=== PATIENT | male | born 1955 | race Caucasian/White ===

== ENCOUNTER 2020-02-12 17:13 | Emergency (ER) | payer MEDICARE ==
[~2020-02-12] VITALS: Ht 177.8 cm; Wt 81.8 kg
[~2020-02-12 17:13] MED LIST: HYDR-4353 PO
[2020-02-12 17:19] VITALS: BP 120/68
== END 2020-02-12 18:31 | disposition left against medical advice (07) ==
LOC: ER 17:18
DX: M25.519 Pain in unspecified shoulder (principal); Z53.21 Procedure and treatment not carried out due to patient leaving prior to being seen by health care provider
CPT/HCPCS: 73030

== ENCOUNTER 2020-02-16 18:46 | Inpatient (IN) | payer MEDICARE ==
[~2020-02-16] VITALS: Ht 177.8 cm; Wt 85.6 kg
[2020-02-16 19:21] LABS: BASOPHILS # (AUTO) 0.1 X10'3 (0-0.2); BASOPHILS % (AUTO) 1.4 % (0-1); EOSINOPHILS # (AUTO) 0.3 X10'3 (0-0.9); EOSINOPHILS % (AUTO) 2.8 % (0-6); HEMOGLOBIN 9.7 g/dl (14.0-17.9); LYMPHOCYTES # (AUTO) 4.1 X10'3 (1.1-4.8); LYMPHOCYTES % (AUTO) 41.2 % (21-51); MEAN CORPUSCULAR HEMOGLOBIN 32.1 PG (27.0-31.0); MEAN CORPUSCULAR HGB CONC 33.6 g/dL (33.0-36.5); MEAN CORPUSCULAR VOLUME 95.5 FL (78-98); MEAN PLATELET VOLUME 8.4 FL (7.4-10.4); MONOCYTES # (AUTO) 1.7 X10'3 (0-0.9); MONOCYTES % (AUTO) 16.9 % (2-12); NEUTROPHILS # (AUTO) 3.8 X10'3 (1.8-7.7); NEUTROPHILS % (AUTO) 37.7 % (42-75); PLATELET COUNT 234 X10'3 (140-440); RED BLOOD COUNT 3.03 X10'6 (4.70-6.10); RED CELL DISTRIBUTION WIDTH 17.3 % (11.5-14.5)
[2020-02-16 19:43] LABS: ALANINE AMINOTRANSFERASE 40 U/L (12-78); ALBUMIN 3.2 G/DL (3.4-5.0); ALBUMIN/GLOBULIN RATIO 0.8 (1.1-1.5); ALKALINE PHOSPHATASE 84 IU/L (46-116); ANION GAP 11 (8-16); ANISOCYTOSIS 2+; ASPARTATE AMINO TRANSFERASE 63 U/L (10-37); BILIRUBIN,TOTAL 0.9 MG/DL (0.1-1.0); BLOOD UREA NITROGEN 77 MG/DL (7-18); BUN/CREATININE RATIO 29.5 (5.4-32.0); CALCIUM 7.9 MG/DL (8.5-10.1); CHLORIDE 105 MMOL/L (99-107); CREATININE 2.61 MG/DL (0.60-1.10); GLUCOSE 109 MG/DL (70-104); PLATELET ESTIMATE NORMAL; POTASSIUM 5.8 MMOL/L (3.5-5.1); SODIUM 137 MMOL/L (135-145); TOTAL CARBON DIOXIDE 21.5 MMOL/L (24-32); TOTAL CELLS COUNTED 100; TOTAL PROTEIN 7.4 G/DL (6.4-8.2); eGFR 25 ML/MIN
[2020-02-16 20:06] LABS: PARTIAL THROMBOPLASTIN TIME 126 SECONDS (22-32)
--- NOTE | 2020-02-16 20:38 | NUR ---
ANG # (PTS DAUGHTER) [phone]
--- NOTE | 2020-02-16 20:44 | NUR ---
Attempted IV access x 2 left forearm without success. Pressure dressing applied due to the INR being elevated.
[2020-02-16] MEDS ORDERED: tranexamic acid 1gm/0.7% sal. 100 ML IV ONE ×2 (20:45→20:55)
[2020-02-16] MEDS ORDERED: phytonadione inj. 10 MG in normal saline 100ml IV soln 99 ML IV ONE (20:50)
[2020-02-16] MEDS ORDERED: pantoprazole 40 MG vial IV STA (21:06)
[2020-02-16] MEDS ORDERED: acetaminophen 325mg tablet PO PRN (21:10)
[2020-02-16] MEDS ORDERED: magnesium 4gm in 100ml NS 100 ML IV PRN (21:10)
[2020-02-16] MEDS ORDERED: magnesium hydroxide 30ml (MOM) UD suspension PO PRN (21:10)
[2020-02-16] MEDS ORDERED: thiamine 100mg/ml 2ml inj. IV ONE (21:10)
[2020-02-16] MEDS ORDERED: mag hydrox/Alum hydrox/simeth 30ml oral suspension PO PRN (21:10)
[2020-02-16] MEDS ORDERED: ondansetron/PF 4mg/2ml inj IV PRN (21:10)
[2020-02-16] MEDS ORDERED: haloperidol 5mg tablet PO PRN ×2 (21:10→21:30)
[2020-02-16] MEDS ORDERED: magnesium 2GM in 50ml NS 50 ML IV PRN (21:10)
[2020-02-16] MEDS ORDERED: potassium CL 10mEq/100ml bag 100 ML IV PRN ×2 (21:10)
[2020-02-16] MEDS ORDERED: LORazepam 2 mg/ml vial IV PRN (21:10)
[2020-02-16] MEDS ORDERED: magnesium Cl slow-release 64mg tablet PO PRN (21:10)
[2020-02-16] MEDS ORDERED: dextrose 50%-water 50ml dispensing syringe IV PRN (21:10)
[2020-02-16] MEDS ORDERED: haloperidol lactate 5mg/ml inj IM PRN ×2 (21:10→21:30)
[2020-02-16] MEDS ORDERED: potassium Cl 20 mEq SR tablet PO PRN ×2 (21:10)
[2020-02-16] MEDS ORDERED: ketamine 50 mg/ml 10ml vial IV ONE (21:15)
[2020-02-16] MEDS ORDERED: LIDOcaine Viscous 15ml cup MM ONE (21:15)
[2020-02-16] MEDS ORDERED: ondansetron/PF 4mg/2ml inj IV ONE (21:15)
[2020-02-16] MEDS: normal saline 1000ml 1,000 ML IV SCH (21:16)
[2020-02-16] MEDS ORDERED: SIMV-42 PO (21:19)
[2020-02-16] MEDS ORDERED: WARF2.5T82 PO (21:19)
[2020-02-16] MEDS ORDERED: CARV-50 PO (21:19)
[2020-02-16] MEDS ORDERED: SPIR25TA5 PO (21:19)
[2020-02-16 21:21] LABS: AMYLASE 65 U/L (25-115); LIPASE 295 U/L (73-393); MAGNESIUM 2.2 MG/DL (1.5-2.4)
[2020-02-16] MEDS ORDERED: AMIO200T61 PO (21:23)
--- NOTE | 2020-02-16 21:53 | NUR ---
assisting RN with pt care, pt is resting quietly on gurney, resp even and unlabored, no epistaxsis at this time,
[2020-02-17] VITALS: BP 115/57
--- NOTE | 2020-02-17 | NUR ---
PATIENT ADMITTED TO ROOM 340B FROM ER FOR ANEMIA AND SUPRATHERAPEUTIC INR. PLACED COMFORTABLE IN BED VITAL SIGNS TAKEN AND RECORDED.
[2020-02-17] MEDS: pantoprazole 40MG/NS 100ML BAG 100 ML IV SCH ×5 (00:40→21:43)
[2020-02-17] MEDS: HYDROcodone/acetaminophen 5mg/325mg tablet PO PRN ×2 (01:46→08:29)
[2020-02-17] MEDS: LORazepam 2 mg/ml vial IV PRN ×2 (04:09→08:34)
[2020-02-17 05:30] LABS: BASOPHILS # (AUTO) 0.1 X10'3 (0-0.2); BASOPHILS % (AUTO) 1.2 % (0-1); EOSINOPHILS # (AUTO) 0.2 X10'3 (0-0.9); EOSINOPHILS % (AUTO) 2.7 % (0-6); HEMATOCRIT 24.1 % (42.0-52.0); HEMOGLOBIN 8.2 g/dl (14.0-17.9); LYMPHOCYTES # (AUTO) 1.8 X10'3 (1.1-4.8); LYMPHOCYTES % (AUTO) 28.4 % (21-51); MEAN CORPUSCULAR HEMOGLOBIN 32.4 PG (27.0-31.0); MEAN CORPUSCULAR HGB CONC 33.9 g/dL (33.0-36.5); MEAN CORPUSCULAR VOLUME 95.4 FL (78-98); MEAN PLATELET VOLUME 8.8 FL (7.4-10.4); MONOCYTES # (AUTO) 1.1 X10'3 (0-0.9); NEUTROPHILS # (AUTO) 3.2 X10'3 (1.8-7.7); NEUTROPHILS % (AUTO) 50.7 % (42-75); PLATELET COUNT 157 X10'3 (140-440); RED BLOOD COUNT 2.52 X10'6 (4.70-6.10); RED CELL DISTRIBUTION WIDTH 17.7 % (11.5-14.5); WHITE BLOOD COUNT 6.2 X10'3 (4.5-11.0)
[2020-02-17 05:46] LABS: ALANINE AMINOTRANSFERASE 31 U/L (12-78); ALBUMIN 2.8 G/DL (3.4-5.0); ALBUMIN/GLOBULIN RATIO 0.8 (1.1-1.5); ALKALINE PHOSPHATASE 68 IU/L (46-116); ANION GAP 10 (8-16); ASPARTATE AMINO TRANSFERASE 45 U/L (10-37); BILIRUBIN,TOTAL 0.9 MG/DL (0.1-1.0); BLOOD UREA NITROGEN 70 MG/DL (7-18); BUN/CREATININE RATIO 38.7 (5.4-32.0); CALCIUM 7.5 MG/DL (8.5-10.1); CHLORIDE 107 MMOL/L (99-107); CREATININE 1.81 MG/DL (0.60-1.10); GLUCOSE 103 MG/DL (70-104); MAGNESIUM 1.9 MG/DL (1.5-2.4); PHOSPHORUS 2.6 MG/DL (2.3-4.5); POTASSIUM 5.4 MMOL/L (3.5-5.1); SODIUM 138 MMOL/L (135-145); TOTAL CARBON DIOXIDE 20.7 MMOL/L (24-32); TOTAL PROTEIN 6.3 G/DL (6.4-8.2); eGFR 38 ML/MIN
--- NOTE | 2020-02-17 06:30 | NUR ---
Problems reprioritized. Patient report given, questions answered & plan of care reviewed with THU MELISSA.
--- NOTE | 2020-02-17 06:56 | NUR ---
Patient in room [facility]. I have received report from Azeb MELISSA and had the opportunity to ask questions and assume patient care.
[2020-02-17 08:00] VITALS: BP 124/50
[2020-02-17] MEDS: K and/or MAG REPLACEMENT MC SCH ×2 (08:00→20:00)
[2020-02-17] MEDS: thiamine 100mg tablet PO SCH (08:29)
[2020-02-17] MEDS: multivitamins, therapeutics tablet PO SCH (08:30)
[2020-02-17] MEDS: folic acid 1mg tablet PO SCH (08:30)
[2020-02-17] MEDS: spironolactone 25 MG tablet PO SCH (08:30)
[2020-02-17] MEDS: carVEDilol 12.5mg tablet PO SCH (08:31)
[2020-02-17] MEDS: atorvastatin 10mg tablet PO SCH (08:31)
[2020-02-17] MEDS: amiodarone 200mg tablet PO SCH (08:31)
[2020-02-17] MEDS: normal saline 1000ml 1,000 ML IV SCH ×2 (09:04→18:00)
[2020-02-17 09:13] LABS: ANISOCYTOSIS 1+; PLATELET ESTIMATE NORMAL
[2020-02-17 09:24] VITALS: BP 104/51
--- NOTE | 2020-02-17 10:25 | NUR ---
Patient reported that he had a bowel movement this morning 02/17/20, patient states that the stool was formed and dark in color. Emanuel HERRING
--- NOTE | 2020-02-17 10:27 | NUR ---
Cleaned wound on right elbow and replaced bandage. Wound is small, circular in shape and is no longer bleeding. Emanuel HERRING
[2020-02-17 15:37] VITALS: BP 117/46
--- NOTE | 2020-02-17 17:19 | NUR ---
Student documentation: I have reviewed all interventions, assessments performed and documented by Daisy HERRING from [facility] . Student Medication Administration: For all medication-passes, medications were reviewed, dispensed, administered and documented per hospital policy by Daisy HERRING form [facility].
--- NOTE | 2020-02-17 17:59 | NUR ---
patient is stable, npo after midnight for EGD in am
[2020-02-17 18:00] VITALS: BP 104/57
--- NOTE | 2020-02-17 18:32 | NUR ---
Problems reprioritized. Patient report given, questions answered & plan of care reviewed with Moreno MELISSA.
[2020-02-17] MEDS ORDERED: phytonadione inj. 10 MG in normal saline 100ml IV soln 99 ML IV ONE (21:15)
[2020-02-18] VITALS (13 sets, daily range): BP systolic 101–130; BP diastolic 45–73
[2020-02-18] MEDS: pantoprazole 40MG/NS 100ML BAG 100 ML IV SCH ×3 (03:33→15:23)
[2020-02-18] MEDS: normal saline 1000ml 1,000 ML IV SCH ×3 (03:35→23:07)
[2020-02-18 05:41] LABS: EOSINOPHILS # (AUTO) 0.2 X10'3 (0-0.9); HEMATOCRIT 22.9 % (42.0-52.0); HEMOGLOBIN 7.8 g/dl (14.0-17.9); LYMPHOCYTES # (AUTO) 1.9 X10'3 (1.1-4.8); MONOCYTES # (AUTO) 0.9 X10'3 (0-0.9); RED BLOOD COUNT 2.34 X10'6 (4.70-6.10)
[2020-02-18 05:43] LABS: BASOPHILS # (AUTO) 0.1 X10'3 (0-0.2); BASOPHILS % (AUTO) 0.9 % (0-1); EOSINOPHILS % (AUTO) 4.2 % (0-6); LYMPHOCYTES % (AUTO) 33.8 % (21-51); MEAN CORPUSCULAR HEMOGLOBIN 33.3 PG (27.0-31.0); MEAN CORPUSCULAR HGB CONC 34.1 g/dL (33.0-36.5); MEAN CORPUSCULAR VOLUME 97.6 FL (78-98); MEAN PLATELET VOLUME 8.4 FL (7.4-10.4); MONOCYTES % (AUTO) 15.6 % (2-12); NEUTROPHILS # (AUTO) 2.6 X10'3 (1.8-7.7); NEUTROPHILS % (AUTO) 45.5 % (42-75); PLATELET COUNT 152 X10'3 (140-440); RED CELL DISTRIBUTION WIDTH 17.9 % (11.5-14.5); WHITE BLOOD COUNT 5.6 X10'3 (4.5-11.0)
[2020-02-18 06:02] LABS: ALANINE AMINOTRANSFERASE 24 U/L (12-78); ALBUMIN 2.6 G/DL (3.4-5.0); ALBUMIN/GLOBULIN RATIO 0.7 (1.1-1.5); ALKALINE PHOSPHATASE 63 IU/L (46-116); ANION GAP 2 (8-16); ASPARTATE AMINO TRANSFERASE 37 U/L (10-37); BLOOD UREA NITROGEN 41 MG/DL (7-18); BUN/CREATININE RATIO 32.8 (5.4-32.0); CALCIUM 7.8 MG/DL (8.5-10.1); CHLORIDE 111 MMOL/L (99-107); CREATININE 1.25 MG/DL (0.60-1.10); GLUCOSE 92 MG/DL (70-104); MAGNESIUM 1.8 MG/DL (1.5-2.4); PHOSPHORUS 2.1 MG/DL (2.3-4.5); SODIUM 140 MMOL/L (135-145); TOTAL CARBON DIOXIDE 26.6 MMOL/L (24-32); TOTAL PROTEIN 6.2 G/DL (6.4-8.2); eGFR 59 ML/MIN
[2020-02-18 06:04] LABS: POTASSIUM 6.1 MMOL/L (3.5-5.1)
--- NOTE | 2020-02-18 06:42 | NUR ---
Patient in room [facility]. I have received report from berkley Mayer and had the opportunity to ask questions and assume patient care.
--- NOTE | 2020-02-18 06:45 | NUR ---
paged with critical value K=6.1 ,awaiting orders
[2020-02-18] MEDS: spironolactone 25 MG tablet PO SCH (08:00)
[2020-02-18] MEDS: K and/or MAG REPLACEMENT MC SCH ×2 (08:43→20:00)
[2020-02-18] MEDS: amiodarone 200mg tablet PO SCH (08:44)
[2020-02-18] MEDS: atorvastatin 10mg tablet PO SCH (08:45)
[2020-02-18] MEDS: folic acid 1mg tablet PO SCH (08:45)
[2020-02-18] MEDS: carVEDilol 12.5mg tablet PO SCH (08:45)
[2020-02-18] MEDS: multivitamins, therapeutics tablet PO SCH (08:46)
[2020-02-18] MEDS: thiamine 100mg tablet PO SCH (08:46)
[2020-02-18] MEDS ORDERED: sodium polystyrene sulfonate 15gm/60ml oral suspension PO ONE (09:40)
[2020-02-18] MEDS ORDERED: calcium gluconate inj. 1 GM in normal saline 100ml IV soln 90 ML IV ONE (09:40)
[2020-02-18] MEDS ORDERED: CALCIUM GLUC 1gm/50ml NACL,iso 100 ML IV ONE (09:57)
[2020-02-18 16:25] LABS: HEMATOCRIT 22.6 % (42.0-52.0); HEMOGLOBIN 7.7 g/dl (14.0-17.9); MEAN PLATELET VOLUME 7.7 FL (7.4-10.4); PLATELET COUNT 160 X10'3 (140-440); RED BLOOD COUNT 2.33 X10'6 (4.70-6.10); RED CELL DISTRIBUTION WIDTH 18.2 % (11.5-14.5); WHITE BLOOD COUNT 5.5 X10'3 (4.5-11.0)
[2020-02-18] MEDS ORDERED: fentaNYL/PF 50MCG/1 ML 2ML syringe ONE (18:21)
[2020-02-18] MEDS ORDERED: MIDAZolam 5mg/5ml vial ONE (18:22)
[2020-02-18] MEDS ORDERED: LIDOcaine Viscous 15ml cup ONE (18:22)
[2020-02-18] MEDS ORDERED: LORazepam 1 MG tablet PO PRN ×2 (21:10→21:30)
[2020-02-18] MEDS ORDERED: LORazepam 2 mg/ml vial IV PRN ×2 (21:10→21:30)
[2020-02-19] VITALS: BP 110/62
[2020-02-19 05:36] LABS: EOSINOPHILS # (AUTO) 0.2 X10'3 (0-0.9); HEMOGLOBIN 7.2 g/dl (14.0-17.9); LYMPHOCYTES # (AUTO) 1.7 X10'3 (1.1-4.8); LYMPHOCYTES % (AUTO) 37.8 % (21-51); MEAN CORPUSCULAR HEMOGLOBIN 32.6 PG (27.0-31.0); MEAN CORPUSCULAR HGB CONC 33.3 g/dL (33.0-36.5); MEAN CORPUSCULAR VOLUME 97.9 FL (78-98); MEAN PLATELET VOLUME 7.9 FL (7.4-10.4); MONOCYTES # (AUTO) 0.8 X10'3 (0-0.9); MONOCYTES % (AUTO) 17.4 % (2-12); NEUTROPHILS # (AUTO) 1.8 X10'3 (1.8-7.7); NEUTROPHILS % (AUTO) 39.8 % (42-75); PLATELET COUNT 151 X10'3 (140-440); RED BLOOD COUNT 2.21 X10'6 (4.70-6.10); RED CELL DISTRIBUTION WIDTH 18.2 % (11.5-14.5); WHITE BLOOD COUNT 4.5 X10'3 (4.5-11.0)
[2020-02-19 05:48] LABS: HEMATOCRIT 21.7 % (42.0-52.0)
[2020-02-19 05:58] LABS: ALANINE AMINOTRANSFERASE 32 U/L (12-78); ALBUMIN 2.4 G/DL (3.4-5.0); ALBUMIN/GLOBULIN RATIO 0.7 (1.1-1.5); ALKALINE PHOSPHATASE 60 IU/L (46-116); ANION GAP 6 (8-16); ASPARTATE AMINO TRANSFERASE 47 U/L (10-37); BILIRUBIN,TOTAL 0.9 MG/DL (0.1-1.0); BLOOD UREA NITROGEN 18 MG/DL (7-18); CALCIUM 7.4 MG/DL (8.5-10.1); CHLORIDE 112 MMOL/L (99-107); GLUCOSE 94 MG/DL (70-104); MAGNESIUM 1.6 MG/DL (1.5-2.4); PHOSPHORUS 2.8 MG/DL (2.3-4.5); POTASSIUM 4.6 MMOL/L (3.5-5.1); SODIUM 143 MMOL/L (135-145); TOTAL PROTEIN 5.8 G/DL (6.4-8.2); eGFR 76 ML/MIN
--- NOTE | 2020-02-19 06:43 | NUR ---
Received report from Moreno MELISSA
[2020-02-19 06:47] LABS: ANISOCYTOSIS 2+; PLATELET ESTIMATE NORMAL; TOTAL CELLS COUNTED 100
[2020-02-19] MEDS: K and/or MAG REPLACEMENT MC SCH (06:47)
[2020-02-19 06:48] LABS: HYPOCHROMASIA 1+
[2020-02-19 07:00] VITALS: BP 102/59
[2020-02-19] MEDS ORDERED: pantoprazole 40mg Tablet.DR PO SCH (07:30)
[2020-02-19] MEDS: atorvastatin 10mg tablet PO SCH (07:44)
[2020-02-19] MEDS: thiamine 100mg tablet PO SCH (07:44)
[2020-02-19] MEDS: folic acid 1mg tablet PO SCH (07:44)
[2020-02-19] MEDS: amiodarone 200mg tablet PO SCH (07:44)
[2020-02-19] MEDS: multivitamins, therapeutics tablet PO SCH (07:44)
[2020-02-19] MEDS: carVEDilol 12.5mg tablet PO SCH (07:44)
[2020-02-19] MEDS: normal saline 1000ml 1,000 ML IV SCH (09:07)
[2020-02-19 11:00] VITALS: BP_SYST 101; BP_SYST 114; BP_DIAS 48; BP_DIAS 68
[2020-02-19 12:12] LABS: HEMATOCRIT 23.5 % (42.0-52.0); HEMOGLOBIN 7.8 g/dl (14.0-17.9); MEAN CORPUSCULAR HEMOGLOBIN 32.6 PG (27.0-31.0); MEAN CORPUSCULAR HGB CONC 33.1 g/dL (33.0-36.5); MEAN CORPUSCULAR VOLUME 98.7 FL (78-98); MEAN PLATELET VOLUME 8.5 FL (7.4-10.4); PLATELET COUNT 174 X10'3 (140-440); RED BLOOD COUNT 2.38 X10'6 (4.70-6.10); RED CELL DISTRIBUTION WIDTH 18.5 % (11.5-14.5); WHITE BLOOD COUNT 5.2 X10'3 (4.5-11.0)
[2020-02-19] MEDS ORDERED: PANT40TA4 PO (13:56)
[2020-02-19] MEDS ORDERED: FOLI0.4T2 PO (13:56)
[2020-02-19] MEDS ORDERED: MULT-1179 PO (13:56)
[2020-02-19] MEDS ORDERED: THIA50TA10 PO (13:56)
--- NOTE | 2020-02-19 15:34 | NUR ---
Discontinued upper and lower IV's, patient tolerated well canula intact.
[2020-02-20] MEDS ORDERED: LORazepam 2 mg/ml vial IV PRN ×2 (21:10→21:30)
[2020-02-20] MEDS ORDERED: LORazepam 1 MG tablet PO PRN ×2 (21:10→21:30)
== END 2020-02-19 15:42 | disposition home or self-care (01) | DRG 377 ==
LOC: ER 18:46 → ED HOLD 21:07 → SUR 3N 23:57
PROVIDERS: ADMIT Family Medicine; ATTEND Family Medicine
PROC: 0DB68ZX Excision of Stomach, Via Natural or Artificial Opening Endoscopic, Diagnostic (ICD-10-PCS; principal; 2020-02-18)
DX: K29.71 Gastritis, unspecified, with bleeding (principal); N17.0 Acute kidney failure with tubular necrosis; D68.32 Hemorrhagic disorder due to extrinsic circulating anticoagulants; D62 Acute posthemorrhagic anemia; E87.5 Hyperkalemia; F10.10 Alcohol abuse, uncomplicated; F17.210 Nicotine dependence, cigarettes, uncomplicated; I25.10 Atherosclerotic heart disease of native coronary artery without angina pectoris; K70.9 Alcoholic liver disease, unspecified; I48.91 Unspecified atrial fibrillation; K44.9 Diaphragmatic hernia without obstruction or gangrene; G89.29 Other chronic pain; M54.9 Dorsalgia, unspecified; Z79.01 Long term (current) use of anticoagulants; Z79.899 Other long term (current) drug therapy; Z91.19 Patient's noncompliance with other medical treatment and regimen; Z71.41 Alcohol abuse counseling and surveillance of alcoholic
CPT/HCPCS: 36415; 43239; 80053; 80320; 82150; 82948; 83690; 83735; 84100; 84132; 84484; 85025; 85027; 85610; 85730; 86885; 86900; 86901; 87081; 88305; 88342; 97116; 97161; 99152; 99291; A4620; C9113; G0378; J2060; J2250; J2405; J3010; J3411; J3430; J7030; J7040

== ENCOUNTER 2021-05-14 19:48 | Emergency (ER) | payer MEDICARE, MEDICAID ==
[~2021-05-14] VITALS: Ht 177.8 cm; Wt 88.5 kg
[~2021-05-14 19:48] MED LIST changes: +AMIO200T61 PO; +CARV-50 PO; -HYDR-4353 PO; +MULT-25 PO; +PANT40TA54 PO; +SIMV-42 PO; +THIA50TA10 PO
[2021-05-14 20:11] VITALS: BP 140/85
[2021-05-14 20:46] LABS: BASOPHILS % (AUTO) 0.7 % (0-1); EOSINOPHILS # (AUTO) 0.1 X10'3 (0-0.9); EOSINOPHILS % (AUTO) 1.1 % (0-6); HEMATOCRIT 41.1 % (42.0-52.0); HEMOGLOBIN 13.6 g/dl (14.0-17.9); LYMPHOCYTES # (AUTO) 2.5 X10'3 (1.1-4.8); LYMPHOCYTES % (AUTO) 36.2 % (21-51); MEAN CORPUSCULAR HEMOGLOBIN 36.7 PG (27.0-31.0); MEAN CORPUSCULAR VOLUME 111.3 FL (78-98); MEAN PLATELET VOLUME 8.8 FL (7.4-10.4); MONOCYTES # (AUTO) 0.9 X10'3 (0-0.9); MONOCYTES % (AUTO) 12.8 % (2-12); NEUTROPHILS # (AUTO) 3.4 X10'3 (1.8-7.7); NEUTROPHILS % (AUTO) 49.2 % (42-75); PLATELET COUNT 164 X10'3 (140-440); RED BLOOD COUNT 3.69 X10'6 (4.70-6.10); RED CELL DISTRIBUTION WIDTH 15.9 % (11.5-14.5); WHITE BLOOD COUNT 6.8 X10'3 (4.5-11.0)
[2021-05-14 20:58] LABS: ALANINE AMINOTRANSFERASE 23 U/L (12-78); ALBUMIN 2.7 G/DL (3.4-5.0); ALBUMIN/GLOBULIN RATIO 0.5 (1.1-1.5); ALKALINE PHOSPHATASE 132 IU/L (46-116); ANION GAP 8 (8-16); ASPARTATE AMINO TRANSFERASE 75 U/L (10-37); BILIRUBIN,TOTAL 0.4 MG/DL (0.1-1.0); BLOOD UREA NITROGEN 12 MG/DL (7-18); BUN/CREATININE RATIO 12.6 (5.4-32.0); CALCIUM 8.8 MG/DL (8.5-10.1); CHLORIDE 102 MMOL/L (99-107); CREATININE 0.95 MG/DL (0.60-1.10); GLUCOSE 132 MG/DL (70-104); POTASSIUM 4.6 MMOL/L (3.5-5.1); SODIUM 138 MMOL/L (135-145); TOTAL CARBON DIOXIDE 28.5 MMOL/L (24-32); TOTAL PROTEIN 8.7 G/DL (6.4-8.2); eGFR 80 ML/MIN
[2021-05-14 21:05] LABS: MAGNESIUM 1.9 MG/DL (1.5-2.4); TROPONIN I < 0.04 NG/ML (0.0-0.05)
[2021-05-14 21:06] LABS: ETHANOL 0.316 GM/DL (0.0-0.010)
[2021-05-14 21:19] LABS: PARTIAL THROMBOPLASTIN TIME 30 SECONDS (22-32)
[2021-05-14 22:29] LABS: PLATELET ESTIMATE NORMAL
--- NOTE | 2021-05-14 22:40 | NUR ---
Patient called for in lobby- no response and not found at this time.
--- NOTE | 2021-05-14 23:26 | NUR ---
Patient no longer found in lobby- second call. Appears to have left.
== END 2021-05-14 23:28 | disposition left against medical advice (07) ==
LOC: ER 19:48
DX: R07.89 Other chest pain (principal); Z53.21 Procedure and treatment not carried out due to patient leaving prior to being seen by health care provider
CPT/HCPCS: 36415; 71045; 80053; 80320; 83735; 83880; 84484; 85008; 85025; 85610; 85730; 93005

== ENCOUNTER 2021-05-25 07:31 | Inpatient (IN) | payer MEDICARE, MEDICAID ==
[~2021-05-25] VITALS: Ht 177.8 cm; Wt 95.0 kg
[2021-05-25] MEDS ORDERED: aspirin 81mg tab.chew PO ONE (08:20)
[2021-05-25 08:36] LABS: BASOPHILS # (AUTO) 0.1 X10'3 (0-0.2); BASOPHILS % (AUTO) 0.7 % (0-1); EOSINOPHILS # (AUTO) 0.1 X10'3 (0-0.9); EOSINOPHILS % (AUTO) 0.8 % (0-6); HEMOGLOBIN 12.8 g/dl (14.0-17.9); LYMPHOCYTES # (AUTO) 2.2 X10'3 (1.1-4.8); LYMPHOCYTES % (AUTO) 24.7 % (21-51); MEAN CORPUSCULAR HGB CONC 33.8 g/dL (33.0-36.5); MEAN CORPUSCULAR VOLUME 109.5 FL (78-98); MEAN PLATELET VOLUME 9.1 FL (7.4-10.4); MONOCYTES # (AUTO) 1.4 X10'3 (0-0.9); MONOCYTES % (AUTO) 15.9 % (2-12); NEUTROPHILS # (AUTO) 5.1 X10'3 (1.8-7.7); NEUTROPHILS % (AUTO) 57.9 % (42-75); PLATELET COUNT 240 X10'3 (140-440); RED BLOOD COUNT 3.47 X10'6 (4.70-6.10); RED CELL DISTRIBUTION WIDTH 16.4 % (11.5-14.5); WHITE BLOOD COUNT 8.8 X10'3 (4.5-11.0)
[2021-05-25 08:51] LABS: ALANINE AMINOTRANSFERASE 42 U/L (12-78); ALBUMIN 2.7 G/DL (3.4-5.0); ALBUMIN/GLOBULIN RATIO 0.5 (1.1-1.5); ALKALINE PHOSPHATASE 118 IU/L (46-116); ANION GAP 7 (8-16); ASPARTATE AMINO TRANSFERASE 84 U/L (10-37); BILIRUBIN,TOTAL 0.6 MG/DL (0.1-1.0); BLOOD UREA NITROGEN 10 MG/DL (7-18); BUN/CREATININE RATIO 13.7 (5.4-32.0); CHLORIDE 99 MMOL/L (99-107); CREATININE 0.73 MG/DL (0.60-1.10); GLUCOSE 136 MG/DL (70-104); POTASSIUM 4.4 MMOL/L (3.5-5.1); SODIUM 135 MMOL/L (135-145); TOTAL CARBON DIOXIDE 28.9 MMOL/L (24-32); TOTAL PROTEIN 8.5 G/DL (6.4-8.2); eGFR > 90 ML/MIN
[2021-05-25 09:33] LABS: ETHANOL 0.054 GM/DL (0.0-0.010)
[2021-05-25] MEDS ORDERED: furosemide 40mg/4ml inj IV ONE (10:35)
[2021-05-25] MEDS ORDERED: magnesium 2GM in 50ml NS 50 ML IV PRN (11:30)
[2021-05-25] MEDS ORDERED: morphine 2 MG/ML inj. syringe IV PRN (11:30)
[2021-05-25] MEDS ORDERED: acetaminophen 325mg tablet PO PRN (11:30)
[2021-05-25] MEDS ORDERED: potassium Cl 20 mEq SR tablet PO PRN ×2 (11:30)
[2021-05-25] MEDS ORDERED: magnesium Cl slow-release 64mg tablet PO PRN (11:30)
[2021-05-25] MEDS ORDERED: PERFLUTREN PROTEIN-A MICROSPHR (Optison) 0.22 MG/ML 3ML VIAL IV ONE (11:30)
[2021-05-25] MEDS ORDERED: ondansetron/PF 4mg/2ml inj IV PRN (11:30)
[2021-05-25] MEDS ORDERED: potassium Cl 40MEQ/1/2NS 520ml 520 ML IV PRN ×2 (11:30)
[2021-05-25] MEDS ORDERED: magnesium 4gm in 100ml NS 100 ML IV PRN (11:30)
[2021-05-25] MEDS ORDERED: BUDE10.2 INH (11:37)
[2021-05-25] MEDS ORDERED: APIX5TAB3 PO (11:37)
[2021-05-25] MEDS ORDERED: METO-395 PO (11:37)
[2021-05-25] MEDS ORDERED: LOSA25TA41 PO (11:37)
[2021-05-25] MEDS ORDERED: SPIR25TA5 PO (11:40)
[2021-05-25] MEDS ORDERED: FURO40TA4 (11:40)
[2021-05-25] MEDS: amiodarone 200mg tablet PO SCH (12:04)
--- NOTE | 2021-05-25 12:07 | NUR ---
DR. SINGH AT BEDSIDE TO EVALUATE PATIENT.
[2021-05-25] MEDS ORDERED: PERFLUTREN PROTEIN-A MICROSPHR (Optison) 0.22 MG/ML 3ML VIAL IV PRN (12:30)
[2021-05-25] MEDS: carVEDilol 12.5mg tablet PO SCH ×2 (12:37→20:25)
[2021-05-25] MEDS: LORazepam 2 mg/ml vial IV PRN ×2 (13:47→20:25)
--- NOTE | 2021-05-25 13:55 | NUR ---
METAL CEILING BUILDER AT BEDSIDE.
--- NOTE | 2021-05-25 14:10 | NUR ---
PAT UP AT BEDSIDE EATING LUNCH, NO SIGNS OF DISTRESS NOTED.
[2021-05-25] MEDS: chlordiazePOXIDE 5mg capsule PO SCH ×2 (15:33→22:19)
--- NOTE | 2021-05-25 16:14 | NUR ---
avionic technician at bedside.
[2021-05-25] MEDS: K and/or MAG REPLACEMENT MC SCH (18:29)
[2021-05-25] MEDS ORDERED: carVEDilol 12.5mg tablet PO SCH (20:00)
--- NOTE | 2021-05-25 20:00 | NUR ---
Patient in room ED 7. I have received report from Georgette MELISSA and had the opportunity to ask questions and assume patient care.
[2021-05-25] MEDS: docusate sod 100mg capsule PO SCH (20:25)
[2021-05-25 20:30] VITALS: BP 140/82
[2021-05-25 22:00] VITALS: BP 141/83
[2021-05-25] MEDS ORDERED: diltiazem 5mg/ml 5ml inj. IV ONE (22:35)
[2021-05-25] MEDS ORDERED: metoprolol succinate 25mg (24-HOUR) SR. Tablet PO SCH (22:40)
--- NOTE | 2021-05-25 22:57 | NUR ---
Spoke with hospitalist regarding new order for Cardizem. Pt's HR is 110 in sinus tach. She advised to not give the Cardizem. However give the Lasix and Losartan per orders.
[2021-05-25] MEDS: furosemide 40mg/4ml inj IV SCH (23:10)
[2021-05-25] MEDS: losartan 25mg tablet PO SCH (23:10)
[2021-05-25] MEDS: ipratropium/albuterol 3ml nebule NEB SCH (23:28)
[2021-05-26 02:00] VITALS: BP 136/80
[2021-05-26] MEDS: ipratropium/albuterol 3ml nebule NEB SCH ×3 (03:32→11:09)
--- NOTE | 2021-05-26 06:18 | NUR ---
Problems reprioritized. Patient report given, questions answered & plan of care reviewed with Elis MELISSA.
[2021-05-26 06:32] LABS: BASOPHILS % (AUTO) 0.4 % (0-1); EOSINOPHILS # (AUTO) 0.1 X10'3 (0-0.9); EOSINOPHILS % (AUTO) 1.4 % (0-6); HEMATOCRIT 36.1 % (42.0-52.0); HEMOGLOBIN 12.1 g/dl (14.0-17.9); LYMPHOCYTES # (AUTO) 1.7 X10'3 (1.1-4.8); LYMPHOCYTES % (AUTO) 25.4 % (21-51); MEAN CORPUSCULAR HEMOGLOBIN 36.7 PG (27.0-31.0); MEAN CORPUSCULAR HGB CONC 33.4 g/dL (33.0-36.5); MEAN PLATELET VOLUME 9.2 FL (7.4-10.4); MONOCYTES # (AUTO) 1.1 X10'3 (0-0.9); MONOCYTES % (AUTO) 15.8 % (2-12); NEUTROPHILS # (AUTO) 3.8 X10'3 (1.8-7.7); PLATELET COUNT 262 X10'3 (140-440); RED BLOOD COUNT 3.28 X10'6 (4.70-6.10); RED CELL DISTRIBUTION WIDTH 16.2 % (11.5-14.5); WHITE BLOOD COUNT 6.8 X10'3 (4.5-11.0)
[2021-05-26 06:47] LABS: ALBUMIN 2.6 G/DL (3.4-5.0); ANION GAP 8 (8-16); BLOOD UREA NITROGEN 20 MG/DL (7-18); BUN/CREATININE RATIO 21.3 (5.4-32.0); CALCIUM 9.5 MG/DL (8.5-10.1); CHLORIDE 98 MMOL/L (99-107); CHOL/HDL RATIO 4.2 (0.00-4.99); CHOLESTEROL 150 MG/DL (0-200); CREATININE 0.94 MG/DL (0.60-1.10); GLUCOSE 106 MG/DL (70-104); HDL CHOLESTEROL 36 MG/DL (35-60); LDL CHOLESTEROL 96 MG/DL (50-100); MAGNESIUM 2.1 MG/DL (1.5-2.4); POTASSIUM 4.5 MMOL/L (3.5-5.1); SODIUM 137 MMOL/L (135-145); TOTAL CARBON DIOXIDE 31.5 MMOL/L (24-32); TRIGLYCERIDES 79 MG/DL (20-135); eGFR 81 ML/MIN
[2021-05-26 07:05] LABS: ANISOCYTOSIS 1+; PLATELET ESTIMATE NORMAL; POLYCHROMASIA FEW; STOMATOCYTES 1+
[2021-05-26] MEDS: chlordiazePOXIDE 5mg capsule PO SCH (07:51)
[2021-05-26] MEDS: docusate sod 100mg capsule PO SCH (07:51)
[2021-05-26 07:52] VITALS: BP_SYST 117
[2021-05-26] MEDS: carVEDilol 12.5mg tablet PO SCH (07:52)
[2021-05-26] MEDS: losartan 25mg tablet PO SCH (07:52)
[2021-05-26] MEDS: amiodarone 200mg tablet PO SCH (07:52)
[2021-05-26] MEDS: furosemide 40mg/4ml inj IV SCH (07:53)
[2021-05-26] MEDS ORDERED: methylPREDNISolone sod succ/PF 40mg inj. IV SCH (08:00)
[2021-05-26] MEDS ORDERED: apixaban 5mg tablet PO SCH (08:00)
[2021-05-26] MEDS: K and/or MAG REPLACEMENT MC SCH (08:00)
[2021-05-26] MEDS: LORazepam 2 mg/ml vial IV PRN (10:59)
[2021-05-26] MEDS ORDERED: LEVO750T46 PO (11:26)
[2021-05-26] MEDS ORDERED: ALBU8.5H17 INH (11:26)
[2021-05-26] MEDS ORDERED: PRED10TA23 PO (11:26)
[2021-05-26] MEDS ORDERED: ondansetron 4mg rapidly disintigrating tab PO PRN (13:15)
== END 2021-05-26 14:00 | disposition home or self-care (01) | DRG 192 ==
LOC: ER 07:31 → ED HOLD 11:36 → PCU 3S 20:05
PROVIDERS: ADMIT Internal Medicine; ATTEND Internal Medicine
DX: J44.1 Chronic obstructive pulmonary disease with (acute) exacerbation (principal); I48.0 Paroxysmal atrial fibrillation; E78.5 Hyperlipidemia, unspecified; F10.20 Alcohol dependence, uncomplicated; F17.210 Nicotine dependence, cigarettes, uncomplicated; I11.0 Hypertensive heart disease with heart failure; I27.20 Pulmonary hypertension, unspecified; I50.9 Heart failure, unspecified; K21.9 Gastro-esophageal reflux disease without esophagitis; Z20.822 Contact with and (suspected) exposure to COVID-19; G89.29 Other chronic pain; M54.9 Dorsalgia, unspecified; R00.0 Tachycardia, unspecified; Z79.01 Long term (current) use of anticoagulants; Z79.899 Other long term (current) drug therapy; Z71.41 Alcohol abuse counseling and surveillance of alcoholic; Z71.6 Tobacco abuse counseling
CPT/HCPCS: 36415; 71045; 80048; 80053; 80061; 80320; 83735; 83880; 84484; 85008; 85025; 87081; 87635; 93005; 93306; 94640; 94760; 96374; 99285; C9803; G0378; J1940; J2060; J2920

== ENCOUNTER 2021-05-29 05:33 | Emergency (ER) | payer MEDICARE, MEDICAID ==
[~2021-05-29] VITALS: Ht 154.9 cm; Wt 95.0 kg
[~2021-05-29 05:33] MED LIST changes: +ALBU8.5H17 INH; -AMIO200T61 PO; +APIX5TAB3 PO; +BUDE10.2 INH; -CARV-50 PO; +LEVO750T46 PO; +LOSA25TA41 PO; +METO-395 PO; -MULT-25 PO; -PANT40TA54 PO; +PRED10TA23 PO; -SIMV-42 PO; -THIA50TA10 PO
[2021-05-29 06:07] LABS: BASOPHILS # (AUTO) 0.1 X10'3 (0-0.2); BASOPHILS % (AUTO) 0.5 % (0-1); EOSINOPHILS % (AUTO) 0.1 % (0-6); HEMATOCRIT 37.8 % (42.0-52.0); HEMOGLOBIN 12.2 g/dl (14.0-17.9); LYMPHOCYTES # (AUTO) 2.4 X10'3 (1.1-4.8); MEAN CORPUSCULAR HEMOGLOBIN 36.2 PG (27.0-31.0); MEAN CORPUSCULAR HGB CONC 32.3 g/dL (33.0-36.5); MEAN CORPUSCULAR VOLUME 112.1 FL (78-98); MEAN PLATELET VOLUME 9.2 FL (7.4-10.4); MONOCYTES # (AUTO) 1.4 X10'3 (0-0.9); MONOCYTES % (AUTO) 14.4 % (2-12); NEUTROPHILS # (AUTO) 5.7 X10'3 (1.8-7.7); PLATELET COUNT 310 X10'3 (140-440); RED BLOOD COUNT 3.37 X10'6 (4.70-6.10); WHITE BLOOD COUNT 9.6 X10'3 (4.5-11.0)
[2021-05-29 06:17] LABS: ALANINE AMINOTRANSFERASE 48 U/L (12-78); ALBUMIN 2.5 G/DL (3.4-5.0); ALBUMIN/GLOBULIN RATIO 0.5 (1.1-1.5); ALKALINE PHOSPHATASE 92 IU/L (46-116); ANION GAP 4 (8-16); ASPARTATE AMINO TRANSFERASE 81 U/L (10-37); BILIRUBIN,TOTAL 0.4 MG/DL (0.1-1.0); BLOOD UREA NITROGEN 26 MG/DL (7-18); BUN/CREATININE RATIO 24.3 (5.4-32.0); CALCIUM 8.8 MG/DL (8.5-10.1); CHLORIDE 102 MMOL/L (99-107); CREATININE 1.07 MG/DL (0.60-1.10); GLUCOSE 101 MG/DL (70-104); POTASSIUM 4.8 MMOL/L (3.5-5.1); SODIUM 137 MMOL/L (135-145); TOTAL CARBON DIOXIDE 30.9 MMOL/L (24-32); TOTAL PROTEIN 7.4 G/DL (6.4-8.2); eGFR 70 ML/MIN
[2021-05-29] MEDS ORDERED: morphine 4 MG/ML inj SYRINge IV ONE (06:40)
[2021-05-29] MEDS ORDERED: albuterol 1.25 MG/3 ML (1/2 strength) nebule NEB ONE (06:40)
[2021-05-29] MEDS ORDERED: metoprolol succinate 25mg (24-HOUR) SR. Tablet PO SCH (08:00)
[2021-05-29] MEDS ORDERED: albuterol 2.5 MG/3 ML nebule NEB ONE (08:05)
[2021-05-29 08:28] VITALS: BP 141/91
== END 2021-05-29 08:34 | disposition home or self-care (01) ==
LOC: ER 05:34
DX: R07.89 Other chest pain (principal); R06.02 Shortness of breath; M54.2 Cervicalgia; I48.91 Unspecified atrial fibrillation; I50.9 Heart failure, unspecified; G89.29 Other chronic pain; F17.200 Nicotine dependence, unspecified, uncomplicated; Z72.89 Other problems related to lifestyle; Z79.2 Long term (current) use of antibiotics; Z79.899 Other long term (current) drug therapy
CPT/HCPCS: 71045; 80053; 83880; 84484; 85025; 93005; 94640; 96374; 99285; J2270; 94760

== ENCOUNTER 2021-07-02 11:42 | Emergency (ER) | payer MEDICARE, MEDICAID ==
[~2021-07-02] VITALS: Ht 177.8 cm; Wt 90.0 kg
[~2021-07-02 11:42] MED LIST changes: -LEVO750T46 PO; -PRED10TA23 PO
[2021-07-02 12:19] LABS: BASOPHILS # (AUTO) 0.1 X10'3 (0-0.2); EOSINOPHILS % (AUTO) 0.5 % (0-6); LYMPHOCYTES # (AUTO) 2.3 X10'3 (1.1-4.8); LYMPHOCYTES % (AUTO) 27.5 % (21-51); MEAN CORPUSCULAR HEMOGLOBIN 35.9 PG (27.0-31.0); MEAN CORPUSCULAR HGB CONC 33.4 g/dL (33.0-36.5); MEAN CORPUSCULAR VOLUME 107.7 FL (78-98); MEAN PLATELET VOLUME 9.4 FL (7.4-10.4); MONOCYTES # (AUTO) 0.8 X10'3 (0-0.9); MONOCYTES % (AUTO) 9.9 % (2-12); NEUTROPHILS # (AUTO) 5.2 X10'3 (1.8-7.7); NEUTROPHILS % (AUTO) 61.1 % (42-75); PLATELET COUNT 282 X10'3 (140-440); RED CELL DISTRIBUTION WIDTH 15.9 % (11.5-14.5); WHITE BLOOD COUNT 8.5 X10'3 (4.5-11.0)
[2021-07-02] MEDS ORDERED: LORazepam 2 mg/ml vial IV ONE (12:25)
[2021-07-02] MEDS ORDERED: LORazepam 1 MG tablet PO ONE (12:25)
[2021-07-02] MEDS ORDERED: metoprolol tartrate 50mg tablet PO ONE (12:25)
[2021-07-02] MEDS ORDERED: metoprolol tartrate 1mg/ml inj IV ONE ×2 (12:25→13:25)
[2021-07-02] MEDS ORDERED: normal saline 1000ML IV soln IVB ONE (12:25)
[2021-07-02 12:33] LABS: ANION GAP 11 (8-16); BLOOD UREA NITROGEN 25 MG/DL (7-18); BUN/CREATININE RATIO 18.9 (5.4-32.0); CHLORIDE 99 MMOL/L (99-107); CREATININE 1.32 MG/DL (0.60-1.10); GLUCOSE 141 MG/DL (70-104); SODIUM 136 MMOL/L (135-145); TOTAL CARBON DIOXIDE 26.2 MMOL/L (24-32)
[2021-07-02 12:34] LABS: ALANINE AMINOTRANSFERASE 25 U/L (12-78); ALBUMIN 2.4 G/DL (3.4-5.0); ALBUMIN/GLOBULIN RATIO 0.4 (1.1-1.5); ALKALINE PHOSPHATASE 139 IU/L (46-116); ASPARTATE AMINO TRANSFERASE 69 U/L (10-37); BILIRUBIN,TOTAL 0.5 MG/DL (0.1-1.0); CALCIUM 8.8 MG/DL (8.5-10.1); TOTAL PROTEIN 9.2 G/DL (6.4-8.2); eGFR 55 ML/MIN
--- NOTE | 2021-07-02 12:58 | NUR ---
nayely (sister) cell phone [phone]
[2021-07-02] MEDS ORDERED: CHLO25CA10 PO (14:00)
[2021-07-02 14:14] VITALS: BP 102/75
== END 2021-07-02 15:25 | disposition home or self-care (01) ==
LOC: ER 11:43
DX: I48.91 Unspecified atrial fibrillation (principal); F10.239 Alcohol dependence with withdrawal, unspecified; E86.0 Dehydration; I50.9 Heart failure, unspecified; G89.29 Other chronic pain; F17.200 Nicotine dependence, unspecified, uncomplicated; Z72.89 Other problems related to lifestyle; Z79.899 Other long term (current) drug therapy; Y90.9 Presence of alcohol in blood, level not specified
CPT/HCPCS: 36415; 71045; 80053; 83880; 84484; 85025; 93005; 96361; 96374; 96375; 96376; 99285; J2060; J7030; J3490

== ENCOUNTER 2021-07-11 15:52 | Emergency (ER) | payer MEDICARE, MEDICAID ==
[~2021-07-11] VITALS: Ht 177.8 cm; Wt 86.4 kg
[~2021-07-11 15:52] MED LIST changes: +CHLO25CA10 PO
[2021-07-11] MEDS ORDERED: normal saline 1000ML IV soln IVB ONE (16:15)
[2021-07-11] MEDS ORDERED: dextrose 5%-lactated ringers 1,000 ML IV SCH (16:35)
[2021-07-11] MEDS ORDERED: thiamine 100mg/ml 2ml inj. IV ONE (16:40)
[2021-07-11] MEDS ORDERED: folic acid 1mg tablet PO ONE (16:50)
[2021-07-11 17:01] LABS: BASOPHILS # (AUTO) 0.1 X10'3 (0-0.2); EOSINOPHILS # (AUTO) 0.1 X10'3 (0-0.9); HEMOGLOBIN 9.9 g/dl (14.0-17.9); LYMPHOCYTES # (AUTO) 1.8 X10'3 (1.1-4.8); LYMPHOCYTES % (AUTO) 29.1 % (21-51); MEAN PLATELET VOLUME 9.7 FL (7.4-10.4); MONOCYTES # (AUTO) 1.2 X10'3 (0-0.9)
[2021-07-11 17:02] LABS: HEMATOCRIT 29.8 % (42.0-52.0); MEAN CORPUSCULAR HGB CONC 33.3 g/dL (33.0-36.5); MEAN CORPUSCULAR VOLUME 105.2 FL (78-98); NEUTROPHILS % (AUTO) 49.9 % (42-75); PLATELET COUNT 258 X10'3 (140-440); RED BLOOD COUNT 2.83 X10'6 (4.70-6.10); RED CELL DISTRIBUTION WIDTH 15.9 % (11.5-14.5); WHITE BLOOD COUNT 6.1 X10'3 (4.5-11.0)
[2021-07-11 17:12] LABS: ALANINE AMINOTRANSFERASE 17 U/L (12-78); ALBUMIN 1.9 G/DL (3.4-5.0); ALBUMIN/GLOBULIN RATIO 0.4 (1.1-1.5); ALKALINE PHOSPHATASE 72 IU/L (46-116); ANION GAP 10 (8-16); ASPARTATE AMINO TRANSFERASE 46 U/L (10-37); BILIRUBIN,TOTAL 0.5 MG/DL (0.1-1.0); BLOOD UREA NITROGEN 21 MG/DL (7-18); BUN/CREATININE RATIO 16.8 (5.4-32.0); CALCIUM 8.1 MG/DL (8.5-10.1); CHLORIDE 103 MMOL/L (99-107); CREATININE 1.25 MG/DL (0.60-1.10); ETHANOL < 0.010 GM/DL (0.0-0.010); GLUCOSE 92 MG/DL (70-104); POTASSIUM 3.9 MMOL/L (3.5-5.1); SODIUM 138 MMOL/L (135-145); TOTAL CARBON DIOXIDE 24.6 MMOL/L (24-32); TOTAL PROTEIN 6.7 G/DL (6.4-8.2); eGFR 58 ML/MIN
--- NOTE | 2021-07-11 18:18 | NUR ---
BACK FROM CT SCAN
--- NOTE | 2021-07-11 18:30 | NUR ---
ASSUMED CARE OF PT, PT SLEEPING WHEN I ENTERED ROOM, AWAKES WHEN I CALL HIM BY NAME, HE IS ABLE TO TELL ME HIS FULL NAME, WHERE HE IS, AND WHAT HIS AGE IS. PT EASILY FALLS ASLEEP. PLACED ON TARIFF COUNSEL AND FRESH SET OF VITALS TAKEN.
[2021-07-11] MEDS ORDERED: CefTRIAXone 2gm/D5W 50ml BAG 50 ML IV ONE (18:50)
--- NOTE | 2021-07-11 19:00 | NUR ---
PT NOTES THAT HE RELAPSED DRINKING ALCOHOL FIVE DAYS AGO, DENIES DRINKING ANY ALCOHOL TODAY
--- NOTE | 2021-07-11 19:00 | NUR ---
URINE SEEN ON URINAL (180 MLS). UNKNOWN HOW LONG IT HAS BEEN SITTING; THEREFORE, UNABLE TO USE URINE SAMPLE.
--- NOTE | 2021-07-11 20:00 | NUR ---
FAMILY CALLED CONCERNING PT'S CONDITION, DAUGHTER NOTES THAT PT HAS BEEN TAKING LIBRIUM AND SLEEPING PILLS.
--- NOTE | 2021-07-11 21:00 | NUR ---
PT STOOD UP WITH HELP OF TECH TO TRY TO PROVIDE A URINE SAMPLE. NO SAMPLE TAKEN, HE REPORTS HE WILL TRY AGAIN A LITTLE LATER. DOES NOT WANT A FEMALE RN IN ROOM WHEN HE NEEDS TO RELIEVE HIMSELF, REQUESTS MALE FOOD BEVERAGE SUPERVISOR
--- NOTE | 2021-07-11 21:11 | NUR ---
PT GIVEN ORANJE JUICE, WILL REASSESS BG SHORTLY
[2021-07-11 21:34] LABS: PLATELET ESTIMATE NORMAL; TOTAL CELLS COUNTED 100
[2021-07-11 21:40] LABS: LARGE PLATELETS FEW
--- NOTE | 2021-07-11 22:37 | NUR ---
SPOKE TO PT'S FAMILY. THEY WILL PICK PT UP IN 15 MINUTES.
[2021-07-11 22:46] VITALS: BP 101/64
== END 2021-07-11 22:49 | disposition home or self-care (01) ==
LOC: ER 15:53
DX: E86.0 Dehydration (principal); Z20.822 Contact with and (suspected) exposure to COVID-19; R53.1 Weakness; R41.0 Disorientation, unspecified; I48.91 Unspecified atrial fibrillation; I50.9 Heart failure, unspecified; G89.29 Other chronic pain; Z98.890 Other specified postprocedural states; Z72.89 Other problems related to lifestyle; Z79.82 Long term (current) use of aspirin
CPT/HCPCS: 36415; 70450; 71045; 74176; 80053; 80320; 82140; 82948; 85007; 85025; 87635; 93005; 96361; 96365; 96366; 96375; 99285; C9803; J0696; J3411; J7030; J7121

== ENCOUNTER 2021-07-26 13:26 | Emergency (ER) | payer MEDICARE, MEDICAID | END 2021-07-26 16:15 | disposition left against medical advice (07) | LOC: ER 13:27 | DX: F10.129 Alcohol abuse with intoxication, unspecified (principal); Z53.21 Procedure and treatment not carried out due to patient leaving prior to being seen by health care provider; Y90.9 Presence of alcohol in blood, level not specified ==